=== PATIENT | female | born 1995 | race Caucasian/White ===

== ENCOUNTER 2022-11-23 05:35 | Emergency (ER) | payer OTHER ==
[2022-11-23 05:45] VITALS: RESP 18; BMI 25.7
[2022-11-23] MEDS ORDERED: ACETAMINOPHEN 1000 MG/100 ML BAG IVPB ONE (06:28)
[2022-11-23] MEDS ORDERED: SODIUM CHLORIDE 0.9% 500 ML INFUS.BAG IV ONE (06:29)
[2022-11-23] MEDS ORDERED: ACETAMINOPHEN INJECTION 100 ML IVPB ONE (06:32)
[2022-11-23 07:33] LABS: BASO % 0.2 % (0-2.0); EOS % 2.2 % (0-4.5); HEMOGLOBIN 12.1 GM/dL (10.7-15.3); LYMPH % 25.1 % (8-40); MCH 27.8 pg (25.7-33.7); MCHC 32.6 g/dl (32.0-36.0); MEAN CELL VOLUME 85.2 fl (80-96); MEAN PLT VOLUME 7.5 fl (7.5-11.1); NEUT % 62.5 % (42.8-82.8); PLATELET COUNT 262 10^3/uL (134-434); RBC 4.35 M/mm3 (3.60-5.2); RDW 13.3 % (11.6-15.6); WHITE BLOOD COUNT 8.1 K/mm3 (4.0-10.0)
[2022-11-23 07:40] LABS: INR 1.13 (0.83-1.09); PROTHROMBIN TIME (PATIENT) 13.1 SEC (9.7-13.0)
[2022-11-23 07:43] LABS: ACTIVATED PTT 29.1 SECONDS (25.2-36.5)
[2022-11-23 07:51] LABS: POTASSIUM 4.2 mmol/L (3.5-5.1)
[2022-11-23 07:52] LABS: ALBUMIN 3.6 g/dl (3.4-5.0); BLOOD UREA NITROGEN 9.1 mg/dL (7-18)
[2022-11-23 07:56] LABS: CREATININE 0.5 mg/dL (0.55-1.3)
[2022-11-23 07:57] LABS: BILIRUBIN,TOTAL 0.4 mg/dL (0.2-1); TOT PROT 7.2 g/dl (6.4-8.2)
[2022-11-23 08:18] LABS: EPI CELLS 4 /uL (0-25.1); HYALINE CASTS 0 /uL (0-3.1); PH,URINE 6.5 (5.0-8.0); URINE APPEARANCE CLEAR; URINE BACTERIA 310 /uL (0-1359); URINE BILIRUBIN NEGATIVE (NEGATIVE); URINE COLOR YELLOW; URINE GLUCOSE (UA) NEGATIVE (NEGATIVE); URINE KETONE NEGATIVE (NEGATIVE); URINE LEUK ESTERASE NEGATIVE (NEGATIVE); URINE NITRITE NEGATIVE (NEGATIVE); URINE PROTEIN NEGATIVE (NEGATIVE); URINE RBC 77 /uL (0-23.9); URINE UROBILINOGEN 0.2 mg/dL (0.2-1.0); URINE WBC 3 /uL (0-25.8)
[2022-11-23 08:28] LABS: HCG,QUALITATIVE URINE Negative
[2022-11-23 08:33] LABS: THROAT:GRP A STREP NOT DETECTED (NOTDETECTED)
[2022-11-23] MEDS ORDERED: KETOROLAC TROMETHAMINE 30 MG/1 ML VIAL IVPUSH ONE (09:05)
[2022-11-23] MEDS ORDERED: KETOROLAC TROMETHAMINE 30 MG/1 ML VIAL ONE (09:21)
[2022-11-23 10:49] VITALS: BP 103/63; PULSE 70; TEMP 98.8
== END 2022-11-23 11:50 | disposition home or self-care (01) ==
LOC: JER 05:35
PROC: 3E0333Z Introduction of Anti-inflammatory into Peripheral Vein, Percutaneous Approach (ICD-10-PCS; principal; 2022-11-23)
PROC: 3E033GC Introduction of Other Therapeutic Substance into Peripheral Vein, Percutaneous Approach (ICD-10-PCS; 2022-11-23)
DX: H92.02 Otalgia, left ear (principal); R09.81 Nasal congestion; J02.9 Acute pharyngitis, unspecified; Z20.822 Contact with and (suspected) exposure to COVID-19
CPT/HCPCS: 0241U-QW; 36415; 70480-TC; 80053; 81003; 84703; 85025; 85610; 85730; 87651; 99284-25